=== PATIENT | female | born 1965 | race American Indian/Alaskan Native ===

== ENCOUNTER 2017-05-04 13:39 | Outpatient (CLI) | payer MEDICAID | END 2017-05-04 13:40 | disposition home or self-care (01) | LOC: SPVWC 13:39 | PROVIDERS: ATTEND Internal Medicine | DX: Z12.31 Encounter for screening mammogram for malignant neoplasm of breast (principal) | CPT/HCPCS: 77067; G0202 ==

== ENCOUNTER 2017-05-26 14:17 | Outpatient (CLI) | payer MEDICAID ==
--- NOTE | 2017-05-26 15:31 | Mammography Report ---
LEFT DIGITAL DIAGNOSTIC MAMMOGRAM : 05/26/17 14:17:00 CLINICAL: Recalled for left asymmetries. COMPARISON:05/04/17 screening FINDINGS: Spot compression MLO and exaggerated CC views were performed and demonstrate two upper outer lymph nodes with central fat and a benign morphology. No mass. IMPRESSION: No mammographic evidence of malignancy. BI-RADS CATEGORY: 2 - - Benign RECOMMENDATION: Routine mammographic screening in one year. ACR BI-RADS MAMMOGRAPHIC CODES: 0 = Needs additional imaging evaluation; 1 = Negative; 2 = Benign; 3 = Probably benign; 4 = Suspicious; 5 = Malignant; 6 = Known biopsy-proven malignancy COMMENT: 1. Dense breast tissue, i.e., adenosis, fibrocystic changes, etc., may obscure an underlying neoplasm. 2. Approximately 10% of cancers are not detected with mammography. 3. A negative mammography report should not delay biopsy if a clinically suspicious mass is present. COMMENT: Patient follow-up letters are generated via our [employer] application.
== END 2017-05-26 14:18 | disposition home or self-care (01) ==
LOC: SPVWC 14:17
PROVIDERS: ATTEND Internal Medicine
DX: R92.8 Other abnormal and inconclusive findings on diagnostic imaging of breast (principal)
CPT/HCPCS: G0206-LT